=== PATIENT | female | born 1940 | race Caucasian/White ===

== ENCOUNTER 2020-01-08 04:02 | Inpatient (IN) | payer MEDICARE, BC, OTHER ==
[~2020-01-08] VITALS: Ht 147.3 cm; Wt 55.3 kg
[~2020-01-08 04:02] MED LIST: ATORVASTATIN CA40 MG PO; LEVOTHYROXINE50 MCG PO
[2020-01-08] MEDS ORDERED: METFORMIN HCL500 MG PO (09:37)
[2020-01-08] MEDS ORDERED: LEVOTHYROXINE75 MCG PO (09:37)
--- NOTE | 2020-01-08 09:57 | NUR ---
SON CARMELINA DROVE WITH PATIENT FROM [facility] TO WORK ON HIS BROTHERS HOUSE WHO LIVES IN [place], [place]. JESSICA PHONE NUMBER IS AND NIKHIL NUMBER IS [phone].
--- NOTE | 2020-01-08 10:30 | NUR ---
NOTIFED OF PTS BP FROM WHEN SHE WAS ADMITTED
--- NOTE | 2020-01-08 11:22 | NUR ---
IN PTS ROOM WITH PHOEBE RN AND MALDONADO RN TO PLACE PTS NASOGASTRIC TUBE. PT TOLERATED WELL WITH IMMEDIATE FLUID RETURN IN SUCTION CANISTER. PT HAS NO CONCERNS AT THIS TIME AND PT EDUCATION WAS PROVIDED PRIOR TO PROCEDURE BEING PERFORMED.
--- NOTE | 2020-01-08 12:10 | NUR ---
PT OFF TO SURGERY AT THIS TIME
--- NOTE | 2020-01-08 12:30 | NUR ---
RESTLESS,AGITATED, ATIVAN 4 MG IV GIVEN PER DR. CONTRERAS ORDERS. ORDERS RECIVED TO ALSO GIVE 130 MG OF PHENOBARB IV.
--- NOTE | 2020-01-08 14:55 | CONS ---
[facility] [address], [place] [address] Signed DATE OF CONSULTATION: 01/08/2020 CHIEF COMPLAINT: Generalized abdominal pain. HISTORY OF PRESENT ILLNESS: Phoenix is a 79-year-old female, who has had a previous bladder suspension. She has had 4 children, all born vaginally. They live in [place], [place]. She came up with her , Liban, and their oldest son Cedric to help their other son Kiko to work on his house up in [place], [place]. In the last 3 days, she has been having generalized abdominal pain and some back pain and had come to the emergency room. She did vomit once. Her short-term memory is very poor, so it was difficult to obtain much history from Phoenix for myself and for the ER physician. Consequently, she did have blood work done that was not in particularly concerning; however, the CT scan of abdomen and pelvis shows a closed-loop obstruction in the right lower quadrant with edema in the mesentery and some free fluid in the abdomen as well. Consequently, I have been asked to admit her as a general surgeon on-call. She has been given Rocephin and Flagyl, IV fluids and the NG tube is in the room. In the meantime, I have finished in the OR, and I have come down to visit with Phoenix. Also, we asked our Internal Medicine Service to see her, but they have been extremely busy this morning and yet to make to Phoenix at this time. We did obtain an EKG and it does show normal sinus rhythm. In the meantime, she seems to be doing fine other than her generalized abdominal pain. PAST MEDICAL HISTORY: Type 2 diabetes, hypothyroidism, hypercholesterolemia, and poor memory. PAST SURGICAL HISTORY: Includes a bladder suspension. SOCIAL HISTORY: She does not smoke or drink. She is to Liban at [phone]. Her oldest son is Cedric at [phone] and her son, Kiko lives in [place], [place] is at [phone]. Phoenix Louie and her oldest son all live in [place], [place]. Her primary care provider is Dr. Rocha. They apparently prefer [facility]. FAMILY HISTORY: Not obtainable. REVIEW OF SYSTEMS: I spoke with her oldest son, Cedric on the phone and he tells me there is no metal in her body to his knowledge and the only surgery she had is a bladder sling. Unfortunately, her literally turned blue in our ER and he had to be flown out to our [facility] at . Consequently, he was not available Electronically Signed By: NANCY BEE MD 01/08/20 2470 PATIENT NAME: PHOENIX DOMINGUEZ CONSULTATION DATE OF : 40 REPORT #: [id number] PHYSICIAN: NANCY BEE MD PCP: OTHER PCP REPORT IS CONFIDENTIAL AND NOT TO BE RELEASED WITHOUT AUTHORIZATION [facility] [address] [place] [id number] Signed for any detail. ALLERGIES: None. MEDICATIONS: Levothyroxine 50 mcg p.o. daily, atorvastatin 40 mg p.o. daily, metformin 500 mg p.o. b.i.d. PHYSICAL EXAMINATION: VITAL SIGNS: Blood pressure is 187/65, heart rate , respiratory rate 17, temperature is 98, she is 92% to 100% on room air. She is 4 feet 10 inches at 53 kg. GENERAL: Phoenix is a 79-year-old female, lying supine in her hospital bed. She is awake and does answer, but rapidly falls back asleep apparently for morphine and Dilaudid. LUNGS: Generally clear to auscultation bilaterally. HEART: Regular rate and rhythm without murmurs. ABDOMEN: Soft and flat. I can feel the closed loop of bowel in her right lower quadrant. It is mobile, but it is tender. LABORATORY DATA: Her white blood count is 4.6, hemoglobin 13, neutrophils . Her sodium is 129, glucose is 140, BUN 17, creatinine 0.74. Urinalysis is negative. Lactic acid is 1.1. Her albumin is 3.9. Liver function tests are negative. Lipase is 31. RADIOGRAPHIC STUDIES: CT scan and pelvis is reviewed along with the report. She clearly has fluid-filled loops of dilated small bowel, what appears to be a closed-loop obstruction with two transition points in the right lower quadrant. There is some edema in the mesentery and some free fluid in the abdomen. Her bladder was quite enlarged and she has already has a Espino catheter in place that has not relieved her abdominal pain. ASSESSMENT/PLAN: Phoenix is a 79-year-old female, who clearly has a very poor memory. Consequently, I did call her older son, Cedric at her request. We had a long discussion regarding her current situation. She has had this for at least 3 days and she really is in need of surgery. We are going to talk to our Internal Medicine Service and Anesthesia provider and hopefully, we can start this in an hour or so. We did review the expected intraop and postop course. There is risk including, but not limited to bleeding, infection, scarring, change in contour of the skin, damage to bowel, anastomotic leak, incisional hernias and other unforeseen comorbidities. Cedric expressed understanding and would like to proceed for surgery for his mother. In the meantime, she has received IV fluids, antibiotics and pain control. Electronically Signed By: NANCY BEE MD 01/08/20 3662 PATIENT NAME: PHOENIX DOMINGUEZ CONSULTATION DATE OF : 40 REPORT #: [id number] PHYSICIAN: NANCY BEE MD PCP: OTHER PCP REPORT IS CONFIDENTIAL AND NOT TO BE RELEASED WITHOUT AUTHORIZATION [address] [address] Signed MD GERTRUDE Lemon/STEPHANIE /[id number] cc: Dr. Aj Bee MD Copies: NANCY BEE MD ~ Electronically Signed By: NANCY BEE MD 01/08/20 1455 PATIENT NAME: PHOENIX DOMINGUEZ CONSULTATION DATE OF : 40 REPORT #: [id number] PHYSICIAN: NANCY BEE MD PCP: OTHER PCP REPORT IS CONFIDENTIAL AND NOT TO BE RELEASED WITHOUT AUTHORIZATION
--- NOTE | 2020-01-08 14:55 | NUR ---
01/08/20 1455 [place] 1449 PT ARRIVED TO PACU ON 8L VIA MASK, PT NONAROUSBALE. CGB 206. RESP EVEN AND UNLABORED WITH ORAL AIRWAY IN PLACE.
--- NOTE | 2020-01-08 15:20 | NUR ---
REPORT RECIEVED FROM HEEL SEAT FLAP STAPLER. PT IS ABLE TO ANSWERE QUESTIONS. VERY GROGGY.POE CATH PATENT. DENIES PAIN. ABD RESTING IS DRY AND INTACT.
--- NOTE | 2020-01-08 16:00 | NUR ---
ASSESSMENT DONE. ORAL CARE GIVEN. NG IRRIGATED WITH 30 ML OF WATER. RETURN OF RUST COLORED SECREATIONS. DENIES NAUSEA.
--- NOTE | 2020-01-08 17:30 | NUR ---
REPOSITIONED. TURNS EASY WITH ASSIST. MILD PAIN. ENC TO DEEP BREATH. ICE BAG TO ABD IN PLACE.
--- NOTE | 2020-01-08 19:00 | NUR ---
NO FUTHER CHANGES. RESTING. REPORT TO NEST SHIFT.
--- NOTE | 2020-01-08 20:57 | NUR ---
PT SON CARMELINA CALLED. STATES THAT THE PT'S JUST TESTED POSITIVE FOR COVID TODAY. DR BEE, DR CONTRERAS, AND WASTE WATER OPERATOR NOTED. PT TO BE SWITCHED TO A NEGATIVE PRESSURE ROOM AT THIS TIME.
--- NOTE | 2020-01-08 21:53 | NUR ---
IN ROOM FOR ASSESSMENT AND MEDICATION ADMINISTRATION. PT RESTING IN BED DENIES ABD PAIN OR DISCOMFORT, PT DOES COMPLAIN OF THROAT DISCOMFORT. PT UPDATED ON HUSBANDS STATUS COVID POSITIVE, AND PLAN TO MOVE PT TO NEGATIVE PRESSURE ROOM. IV ABX AND FLUIDS INFUSING AT THIS TIME. SECOND IV STARTED IN RIGHT FOREARM. WELL TOLERATED BY PT. URINE OUTPUT WNL. ABD INCISION DRESSING IS CLEAN DRY AND INTACT.
--- NOTE | 2020-01-08 23:20 | NUR ---
PT PAIN IN RIGHT SHOULDER AND RIB HAVE RESOLVED. PT RESTING WATCHING TELEVISION AT THIS TIME. CALL LIGHT WITHIN REACH. WILL CONTINUE TO MONITOR.
--- NOTE | 2020-01-09 00:34 | NUR ---
ASSESSMENT COMPLETED AT THIS TIME. PT NOTED TO HAVE CRACKLES IN BILATERAL LOWER BASES. PT IS COUGHING. STATES SHE HAS HAD A PRODUCTIVE COUGH "SINCE I GOT SICK". ASSISTED PATIENT WITH REPOSITIONING IN THE BED. PT DENIES PAIN AT THIS TIME. ABD DRESSING CLEAN DRY AND INTACT. ALL QUESTIONS ANSWERED. NO FURTHER NEEDS AT THIS TIME.
--- NOTE | 2020-01-09 02:34 | NUR ---
pt AWAKE WHEN RN ENTERS ROOM. DENIES PAIN. PRN LOZENGE PROVIDED REQEUSTED. IV ANTIBIOTIC INFUSING WNL ORDERED. POE DRAINING YELLOW URINE. pt DENIES PAIN AT THIS TIME. CALL LIGHT IN REACH.
--- NOTE | 2020-01-09 04:15 | NUR ---
ASSESSMENT COMPLETED AT THIS TIME. PT ALERT AND ORIENTED. DENIES ABD PAIN. BOWEL TONES ABSENT. LUNGS SOUND CLEAR IN THE BASES. FINE CRACKLES IN THE BILATERAL BASES. URINE OUT PUT HAS IMPROVED. PT REPOSITIONED. IV FLUIDS CONTINUE TO INFUSE. CALL LIGHT WITHIN REACH. NO FURTHER NEEDS AT THIS TIME.
--- NOTE | 2020-01-09 06:24 | NUR ---
IN ROOM TO DRAW BLOOD. PT COMPLAINS OF SORE THROAT, LOZENGE GIVEN AT THIS TIME. ASSISTED PT WITH REPOSITIONING IN BED. PT STILL HAS CRACKLES IN LOWER LUNG BASES. URINE OUTPUT HAS BEEN MARINAL. PT DID SOME COUGHING AND DEEP BREATHING.
--- NOTE | 2020-01-09 06:28 | NUR ---
DR BEE IN TO SEE PATIENT. UPDATED ON PTS CONDITION.
--- NOTE | 2020-01-09 06:29 | OR ---
[facility] [address], [place] [address] Signed DATE OF OPERATION: 01/08/2020 SURGEON: Nancy Bee MD PREOPERATIVE DIAGNOSIS: Closed-loop distal small bowel obstruction. POSTOPERATIVE DIAGNOSIS: Closed-loop distal small bowel obstruction. PROCEDURES: 1. Small bowel resection (terminal ileum) with stapled hbdt-wz-uvrr anastomosis (45 cm length). 2. Minimal lysis of adhesions, in was 1.2 L crystalloid and out was 50 mL of blood. FINDINGS: Phoenix had a closed-loop obstruction in her ileum involving the right lower quadrant from previous hysterectomy from just a few adhesions. The bowel was quite edematous and hemorrhagic and had to be resected. A hcmo-rh-hlfq stapled anastomosis was performed. Her appendix remains in place as well as her gallbladder. INDICATIONS: Phoenix is a 79-year-old female, who came out from [place], [place] with her and her oldest son to me to [place]. Her son happens to live in [place] and needed some help on his house. For the last 3 days, she has been having generalized abdominal pain and back pain. She was brought to the emergency room for evaluation. She did vomit once. She seemed to have mild generalized abdominal tenderness with a normal white count and normal lactic acid level. A CT scan of abdomen and pelvis was performed and one can see the closed-loop obstruction of the small bowel in the right lower quadrant. There was no pneumatosis, but there was certainly edema in the mesentery and some free fluid in the abdomen and pelvis. Consequently, I have been asked to admit her as a general surgeon on-call. In the meantime, she did receive her antibiotics, IV fluids, and pain control. Her urinary bladder was quite distended and apparently she has had trouble with that in the past in reviewing some of her records from [place]. A Espino catheter had been inserted in the emergency room with return of clear yellow urine. I had met with Phoenix and I could feel the closed loop of bowel in her right lower quadrant. This was the area of maximum tenderness. Her memory is not the best and unfortunately her actually had turned blue in our emergency room and had to be life flighted over to [facility]. Consequently, she had me called her older son on the phone. We spoke at length regarding the above findings. I Electronically Signed By: NANCY BEE MD 01/09/20 0629 PATIENT NAME: PHOENIX DOMINGUEZ OPERATIVE REPORT DATE OF : 40 REPORT #: [id number] PHYSICIAN: NANCY BEE MD PCP: OTHER PCP REPORT IS CONFIDENTIAL AND NOT TO BE RELEASED WITHOUT AUTHORIZATION [facility] [address], [place] [address] Signed explained to the son that Phoenix really need to go to surgery in a semi-urgent fashion to deal with this area of small bowel. Given the CT scan findings and the 3 days of symptoms, it was highly likely it would have to be resected. We reviewed the risk to that surgery including, but not limited to bleeding, infection, scarring, change in contour of the skin, anastomotic leak, incisional hernias, and other unforeseen comorbidities. We also reviewed the expected intraop and postop course. He and Phoenix had expressed understanding and wished to proceed. In her notes from [place], Phoenix is a full code and we kept her full code and I did talk to her son in that regard. He was going to double-check with his father and if that needs to change, we can certainly change that. PROCEDURE NOTE: After talking with our anesthesia provider, Phoenix was taken in the operating room and placed in the supine position under general endotracheal tube anesthesia. She was already on her preoperative antibiotics and subcutaneous Lovenox. SCDs were in place. A Espino catheter was already in place. We had already placed her NG tube down on the medical floor. She was prepped and draped in the usual sterile fashion. A standard periumbilical incision was made and carried in the abdomen with the help of the cautery. We immediately encountered hemorrhagic ascitic fluid, that was suctioned out. We could easily see unremarkable proximal small bowel, but then we could see the closed-loop obstruction in the right lower quadrant with dilated hemorrhagic congested small bowel. There was just a few adhesions from her fallopian tube and her ovary were easily divided and that released her closed-loop obstruction. She still has 20 cm of normal in between the ileocecal valve and this closed-loop obstruction. Unfortunately, we felt the bowel was too far gone to salvage and we therefore resected it between Pean clamps and 0 Vicryl ties from the mesentery. The distal and proximal small bowel had been divided with the linear stapler. About 45 cm of the ileum had to be resected. It was appropriately marked with silk suture and passed off the field. We did take a couple of pictures for photodocumentation. We ran the small bowel again from the cecum all the way back to the ligament of Treitz and the rest of the small bowel was uninvolved and adhesions were quite healthy. Her appendix is in the retrocecal position, although she has a very mobile cecum. We left that in place. We looked at her liver and her gallbladder and they appeared quite healthy to us. After this, we performed a standard ocqi-vg-hasa stapled anastomosis. The bowel had been held in place with interrupted silk sutures and 75 mm stapler was used for the anastomosis. We then imbricated the anterior staple line with additional silk sutures. The mesenteric rent was closed with a running 0 Vicryl suture. We then irrigated the abdomen with 2 L warm antibiotic saline solution and suctioned that out until clear. Her uterus indeed has been removed. She has an unbelievably large floppy bladder even with the Espino catheter in place. We could see the right fallopian tube and atrophic ovary. We did not inspect for the left side. After this, the small bowel was returned. The abdomen and the omentum were placed over the small bowel. We closed the midline fascia with interrupted # 1 Electronically Signed By: NANCY BEE MD 01/09/20 0629 PATIENT NAME: PHOENIX DOMINGUEZ OPERATIVE REPORT DATE OF : 40 REPORT #: [id number] PHYSICIAN: NANCY BEE MD PCP: OTHER PCP REPORT IS CONFIDENTIAL AND NOT TO BE RELEASED WITHOUT AUTHORIZATION [facility] [address] [place] [address] Signed [id number] PDS sutures. A tap block had been placed by our anesthesia provider before the surgery. We added additional local anesthetic in the abdominal wall and subcutaneous tissues below the level of the umbilicus. The wound had been irrigated and suctioned out until clear. The dermis was reapproximated with interrupted 3-0 subcuticular Monocryl sutures. The skin was reapproximated with fox. Dry gauze and tape were then applied. Phoenix was awakened from anesthesia, extubated in the OR, and taken to recovery room in stable condition. Nancy Bee MD ALB/MODL /[id number] cc: MD Tonny Lemon MD [place], [place] MD [place], [place] Copies: NANCY BEE MD ~ Electronically Signed By: NANCY BEE MD 01/09/20 0629 PATIENT NAME: PHOENIX DOMINGUEZ OPERATIVE REPORT DATE OF : 40 REPORT #: [id number] PHYSICIAN: NANCY BEE MD PCP: OTHER PCP REPORT IS CONFIDENTIAL AND NOT TO BE RELEASED WITHOUT AUTHORIZATION
--- NOTE | 2020-01-09 07:30 | NUR ---
PATIENT SHIFT REPORT RECIEVED FROM REFRIGERATOR REPAIRMAN RN. PATIENT RESTING IN BED. CALL LIGHT IN REACH. WILL CONTINUE TO CLOSELY MONITOR.
--- NOTE | 2020-01-09 08:30 | NUR ---
PATIENT ASSESSMENT COMPLETED. PATIENT BREATH SOUNDS CLEAR AND PATIENT IS ON ROOM AIR. PATIENT HAS AN OCCASIONAL COUGH THIS AM. SPO2 96% ON RA. PATIENT COMPLEAINS OF A SORE THROAT. NG TUBE STILL IN PLACE. BOWEL TONES ABSENT. PATIENT REQUESTING SOMETHING TO DINK EDUCATED THAT STAFF CAN NOT GET HER ANYTHING BECAUSE SHE IS NPO. WILL GIVE PATIENT A MOUTH SWAB WITH WATER. PATIENT MID ABD INCISION IS C/I WITH VICKIE PRESENT AND OPEN TO AIR PER MD. PATIENT HAS SOME TENDERNESS TO SITE. WILL CONTINUE TO CLOSELY MONITOR.
--- NOTE | 2020-01-09 10:30 | NUR ---
PATIENT RESTING IN BED WITH HER EYES CLOSED AT THIS TIME. RR EVEN AND UNLABORED. VITALS STABLE. WILL CONTINUE TO CLOSELY MONITOR.
--- NOTE | 2020-01-09 12:41 | NUR ---
UNABLE TO VISIT PT AT THIS TIME DUE TO PRECAUTIONS. WILL MAKE MYSELF AVAILABLE
--- NOTE | 2020-01-09 12:54 | NUR ---
IN ROOM TO ASSESS PATIENT. PATIENTS ASSESSMENT REMAINS UNCHANGED FROM PRIOR ASSESSMENT THIS AM. PATIENT RESTING IN BED AT THIS TIME. REMOVED NG TUBE AND UPDATED ON NEW PROTOCOL TO HAVE PATIENTS WEAR THEIR MASK WHEN STAFF ARE IN THE ROOM. PATIENT IS AGREEABLE TO THIS PLAN. PATIENT WEARING MASK AND VISITING WITH STAFF ABOUT HER KIDS AND HER RECENT PLANS PRIOR TO BEING ADMITTED. PATIENT HAS MINIMAL ABD PAIN AT THIS TIME. WILL CONTINUE TO CLOSELY MONITOR.
--- NOTE | 2020-01-09 15:00 | NUR ---
PATIENT RESTING IN BED. REPOSITIONED FOR COMFORT. PATIENT VERY CHATTY WITH STAFF THIS AFTERNOON. PATIENT DENEIS ANY OTHER NEEDS AT THIS TIME. PATIENTS ASSESSMENT REMAINS UNCHANGED. WILL CONTINUE TO CLOSELY MONITOR.
--- NOTE | 2020-01-09 16:35 | EKG ---
[facility] [address] [facility] [place], [place] [address] Signed Normal sinus rhythm Normal ECG No previous ECGs available Confirmed by MAY CONTRERAS DO ([id number]) on 01/09/2020 4:35:15 PM Electronically Signed By: MAY CONTRERAS DO 01/09/20 1635 PATIENT NAME: PHOENIX DOMINGUEZ Electrocardiogram DATE OF : 40 PHYSICIAN: MAY CONTRERAS DO REPORT #: [id number] REPORT IS CONFIDENTIAL AND NOT TO BE RELEASED WITHOUT AUTHORIZATION
--- NOTE | 2020-01-09 17:15 | NUR ---
PATIENT RESTING IN BED SLEEPING. PATIENTS SPO2 89 ON RA. RT IN TO ASSESS AND TEACH PATIENT HOW TO USE THE INCENTIVE SPIROMETER AND AQAPELLA. SPO2 IMPROVED ON RA WITH NEW TEACHINGS. WILL CONTINUE TO CLOSELY MONITOR.
--- NOTE | 2020-01-09 18:10 | NUR ---
Medications reconciled
--- NOTE | 2020-01-09 18:37 | NUR ---
PATIENT RESTING IN BED. PATIENT CALLED TO HAVE HER BLAKET TAKEN OFF. PATIENTS BLOOD SUGAR DONE AND NOTED TO BE 83. PATIENT STATES SHE RUNS 80-120 ON HER GLUCOSE. PATIENT REPOSITIONED IN BED. NO OTHER NEEDS AT THSI TIME. CALL LIGHT IN REACH. WILL CONTINUE TO CLOSELY MONITOR.
--- NOTE | 2020-01-09 18:45 | NUR ---
CALLED MD BEE. UPDATED ABOUT PATIENTS BLOOD SUGAR OF 83. PER MD CAN GIVE PATIENT SIPS OF FLUID WITH A 100ML FLUID RESTRICTION IN A DAY. IF HER BLOOD SUGARS DONT IMPROVE WE CAN DO D5LR. PER MD WE CAN MAKE PATIENT A MEDICAL PATIENT AT THIS TIME. WILL CONTINUE TO CLOSELY MONITOR.
--- NOTE | 2020-01-09 20:15 | NUR ---
SHIFT REPORT RECEIVED FROM JHOAN OLIVARES. ASSESSMENT COMPLETED AT THIS TIME. PT IS ALERT/ORIENTED, DENIES PAIN. LUNGS CLEAR, RA, DENIES SOB. HR REGULAR, DENIES CHEST PAIN. BOWEL TONES ABSENT EXCEPT IN RLQ=HYPOACTIVE, PT DENIES PASSING FLATUS. IV SITES INTACT AND PATENT. MIDLINE ABDOMINAL INCISION IS WELL APPROXIMATED, VICKIE INTACT, OPEN TO AIR WITH NO DRAINAGE PRESENT. POE PATENT, DRAINING FREELY, POE CATH CARE COMPLETED. CB, NO SLIDING SCALE COVERAGE REQUIRED. PT PROVIDED WITH APPLE JUICE AND MADE AWARE OF FLUID RESTRICTION. SCD'S IN PLACE. PT DENIES FURTHER REQUESTS AT THIS TIME, CALL LIGHT WITHIN REACH.
--- NOTE | 2020-01-09 22:29 | NUR ---
PT OCCASIONALLY DESATURATES TO MID 80s%, 2L O2 VIA NC PLACED ON PT. PT STATES SHE IS DOING WELL AND ONLY HAS PAIN WHEN SHE COUGHS. INSTRUCTED PT TO SPLINT ABDOMEN WHILE COUGHING, PT DEMONSTRATED LEARNING. NO FURTHER REQUESTS AT THIS TIME.
--- NOTE | 2020-01-09 23:30 | NUR ---
PT CALLED TO REQUEST ASSISTANCE REPOSITIONING HER BED. ASSESSMENT COMPLETED. PT REMAINS ALERT/ORIENTED, DENIES PAIN. LUNGS REMAIN CLEAR, 2L O2 VIA NC IN PLACE, DENIES SOB. HR REGULAR, DENIES CHEST PAIN. BOWEL TONES ARE NOW HYPOACTIVE IN ALL 4 QUADRANTS, PT TOLERATING SIPS OF CLEAR LIQUIDS WELL. IV SITES REMAIN INTACT AND WNL. SCD'S IN PLACE. POE CONTINUES TO DRAIN FREELY. NO FURTHER REQUESTS AT THIS TIME, CALL LIGHT WITHIN REACH AND PT EDUCATED ON HOW TO USE BED CONTROLS TO REPOSITION BED.
--- NOTE | 2020-01-10 02:15 | NUR ---
PT CALLED TO ASK FOR ASSISTANCE REPOSITIONING IN THE BED. ASSISTED HER TO HER RIGHT SIDE WITH PILLOW SUPPORT. ABX INFUSION STARTED. NO FURTHER REQUESTS AT THIS TIME.
--- NOTE | 2020-01-10 02:56 | NUR ---
PT CALLED TO REPORT 7/10 ABDOMINAL PAIN, PRN TORADOL GIVEN AT THIS TIME. DENIES NAUSEA.
--- NOTE | 2020-01-10 03:45 | NUR ---
PT APPEARS TO BE SLEEPING SOUNDLY AT THIS TIME.
--- NOTE | 2020-01-10 05:18 | NUR ---
PT CONTINUES TO SLEEP SOUNDLY, NO APPARENT DISTRESS. RESPIRATIONS EVEN AND UNLABORED, RR:16, HR:59, SPO2:100% ON 2L O2 VIA NC. WILL ALLOW FOR REST AND CONTINUE TO MONITOR.
--- NOTE | 2020-01-10 07:24 | NUR ---
FRESH ICE WATER PROVIDED AND NEW BAG OF IV FLUIDS HUNG.
--- NOTE | 2020-01-10 07:30 | NUR ---
PATIENT SHIFT REPORT RECIEVED FROM GRAPE CRUSHER RN. PATIENT RESTING IN BED AT THIS TIME. CALL LIGHT IN REACH. WILL CONTINUE TO CLOSELY MONITOR.
--- NOTE | 2020-01-10 10:00 | NUR ---
THIS RN IN THE ROOM SINCE 829 TO DO A COMPLETE BED BATH. CHANGED ALL BEDDING, GOWN, AND POE CATH CARE PROVIDED. ASSISTED PATIENT UP TO THE CHAIR WITH 2 PERSON ASSIST FOR PATIENTS SAFETY. PATIENT TOLERATED WELL. PATIENTS ASSESSMENT C/D/I. VICKIE PRESENT. THIS RN IN PAPR SO CAN NOT LISTEN TO PATIENT AT THIS TIME. PATIENT DENEIS PAIN. PATIENT RESTING IN THE CHAIR NOW AND TOELRATING WELL. CALL LIGHT IN HAND. WILL CONTINUE TO CLOSELY MONITOR.
--- NOTE | 2020-01-10 12:11 | NUR ---
THIS RN IN TO SEE PATIENT. PATIENT RESTING WELL IN THE CHAIR AT THIS TIME. PATIENT IS WORKING ON HER AQAPELLA IN THE ROOM ON HER OWN. PATIENT DOES HAVE A PRODUCTIVE LOOSE COUGH. PATIENT CELLPHONE AT THE BEDSIDE. PATIENT STATES HER SON WILL BE BRINGING HER INDUSTRIAL WORKERS. PATIENT DENIES ANY OTHER NEEDS AT THIS TIME. WILL CONTINUE TO CLOSELY MONITOR.
--- NOTE | 2020-01-10 13:30 | NUR ---
PATIENT UP TO THE CAMMODE AND HAD A SMALL LOOSE BM. RUSTISH/BROWN IN COLOR HEME TESTED POSITIVE. PATIENT DENIES ANY OTHER NEEDS AT THIS TIME, PATIENT RESTING BACK IN THE CHAIR AND IS COMFORTBLE AT THIS TIME. CALL LIGHT ON LAP. WILL CONTINUE TO CLOSELY MONITOR.
--- NOTE | 2020-01-10 15:48 | NUR ---
PATIENT UP TO THE CAMMODE. PATIENT HAD A SMALL KAVITA COLORED STOOL. PATIENT DENIES ANY OTHER NEEDS AND RESTING BACK IN THE CHAIR. VITALS DONE. POE EMPTIED. WILL CONTINUE TO CLOSELY MONTIOR.
--- NOTE | 2020-01-10 16:18 | PATH ---
[facility] [address], [place] [address] Signed SPECIMEN(S): A ILEUM SPECIMEN SOURCE: A. ILEUM CLINICAL HISTORY: Pre: Small bowel obstruction. Post: Lysis of adhesions, small bowel resection. Silk stitch francis proximal margin of specimen. FINAL PATHOLOGIC DIAGNOSIS: Ileum, segmental resection: - Benign small bowel with central mucosal necrosis and bowel well vascular congestion. - Benign histologically viable tissue present at the surgical margins. - Several incidental lymph nodes with benign reactive histologic features. JVR:[id number]:[id number] MICROSCOPIC EXAMINATION: Histologic sections of all submitted blocks are examined by light microscopy. These findings, together with the gross examination, support the pathologic diagnosis. GROSS DESCRIPTION: The specimen, labeled "HH," and designated on the requisition "ileum," is received in formalin and consists of a previously opened segment of small bowel (49.0 cm in length and ranging in circumference from 4.5 to 5.6 cm) with portion of attached mesentery (extending 8.3 cm out). The serosa is black-brown and dusky with a segment of pink-shore grossly viable bowel (5.3 cm in length) at one end. Mucosa is pink-shore and the area corresponding to the grossly viable bowel and the remaining mucosa is red-black and devitalized. No lesions or masses are identified. Erco Machine Operator sections are submitted as follows: Cassette Summary: (A1) Margins, en face (A2) Bowel wall (A3) Five possible lymph nodes, intact AC (under the direct supervision of a pathologist) The Gross Description was prepared using a voice recognition system. The report was reviewed for accuracy; however, sound-alike word errors, addition and/or deletions may occur. If there is any PATIENT NAME: PHOENIX DOMINGUEZ PATHOLOGY DATE OF : 40 REPORT #: [id number] PHYSICIAN: EULOGIO BRISCOE PCP: OTHER PCP REPORT IS CONFIDENTIAL AND NOT TO BE RELEASED WITHOUT AUTHORIZATION [facility] [address], [place] [address] Signed question about this report, please contact Client Services. PERFORMING LABORATORY: The technical component was performed by [facility], [address] [place] [address] (Sample Cutter: Elsi Xiong MD; CLIA# [id number]). Professional [place] [address] (Sample Cutter: bIan Kovacs M.D.). Diagnostician: Iban Kovacs MD Pathologist Electronically Signed 01/10/2020 Copies: ~ PATIENT NAME: PHOENIX DOMINGUEZ PATHOLOGY DATE OF : 40 REPORT #: [id number] PHYSICIAN: EULOGIO PATHOLOGY PCP: OTHER PCP REPORT IS CONFIDENTIAL AND NOT TO BE RELEASED WITHOUT AUTHORIZATION
--- NOTE | 2020-01-10 18:45 | NUR ---
WARM BLANKET PROVIDED FOR PATIENTS FEET. JELLO AND BROTH AT THE BEDSIDE. PATIENT DENEIS ANY OTHER NEEDS WHILE STAFF AT THE BEDSIDE. WILL CONTINUE TO CLOSELY MONITOR.
--- NOTE | 2020-01-10 20:51 | NUR ---
SHIFT REPORT RECEIVED FROM JHOAN OLIVARES. ASSESSMENT COMPLETED. PT IS ALERT/ORIENTED, REPORTS 5/10 UPPER BACK/RIGHT SHOULDER PAIN, PRN TORADOL GIVEN AND PT MOVED FROM CHAIR BACK TO BED. LUNGS CLEAR, ROOM AIR, DENIES SOB. HR REGULAR, DENIES CHEST PAIN. BOWEL TONES HYPOACTIVE, PT REPORTS HAVING BM'S TODAY, DENIES TENDERNESS UPON PALPATION. MIDLINE INCISION IS WELL-APPROXIMATED, VICKIE INTACT, NO DRAINAGE NOTED. OTHERWISE SKIN IS GROSSLY INTACT, NO EDEMA NOTED. POE PATENT, CATHETER CARE PROVIDED, URINE LOOKING MORE DILUTE. SCD'S PLACED ON PT. FRESH ICE WATER PROVIDED. IV TO RIGHT FOREARM D/C'D DUE TO LEAKING/PAIN WITH FLUSH, CATHETER TIP INTACT, PT TOLERATED WELL. LEFT AC IV IS PATENT AND INTACT, FLUIDS INFUSING WNL. NO FURHTER REQUESTS AT THIS TIME, CALL LIGHT AND BELONGINGS WITHIN REACH.
--- NOTE | 2020-01-10 21:04 | NUR ---
PT USING ACAPELLA INDEPENDENLY.
--- NOTE | 2020-01-10 22:03 | NUR ---
PT CALLED FOR ASSISTANCE TO REPOSITION IN THE BED. ASSISTED HER TO SCOOT UP HIGHER IN THE BED AND REPOSITION HER PILLOWS. NO FURTHER REQUESTS, CALL LIGHT WITHIN REACH.
--- NOTE | 2020-01-10 23:06 | NUR ---
PT CALLED TO REPORT 5/10 RIGHT SHOULDER AND RIB PAIN, 1MG IV DILAUDID GIVEN. ASSESSMENT COMPLETED. PT DESATS WHILE SLEEPING ~84%, 2L O2 VIA NC PLACED ON PT. BOWEL TONES ARE NOW NORMOACTIVE. OTHERWISE ASSESSMENT UNCHANGED. VITAL SIGNS STABLE. PT REPOSITIONED HERSELF IN BED. FRESH ICE WATER PROVIDED. CALL LIGHT WITHIN REACH.
--- NOTE | 2020-01-11 01:59 | NUR ---
PT SLEEPING SOUNDLY AT THIS TIME, NO APPARENT DISTRESS. RESPIRATIONS EVEN AND UNLABORED, RR:17, SPO2:99% ON 2L, HR: 59. WILL ALLOW FOR REST AND CONTINUE TO MONITOR.
--- NOTE | 2020-01-11 04:15 | NUR ---
ASSESSMENT COMPLETED. PT DENIES PAIN, CHEST PAIN, SOB, AND NAUSEA. NO OTHER CHANGES FROM PREVIOUS ASSESSMENT. PT DENIES NEEDS AT THIS TIME, CALL LIGHT WITHIN REACH.
--- NOTE | 2020-01-11 07:15 | NUR ---
Report received, orders acknowledged. Patient sleeping in bed, respirations even and unlabored. SpO2 of 99% on RA. Call light within reach.
--- NOTE | 2020-01-11 08:30 | NUR ---
Patient laying in bed watching tv. Vitals taken, assessment complete. Crackles noted in bases of lungs, patient encouraged to cough and breathe deep. Productive cough noted with thick yellow sputum. Patient up to chair with 1PA, stand and pivot. Patient unsteady on feet. Fluids infusing at 100 mls/hr. Patient denies further needs, call light within reach.
--- NOTE | 2020-01-11 10:00 | NUR ---
Dr. Wills in room to assess patient and discuss POC. Verbal orders acknowledged to D/C white and monitor urine output. Patient denies pain and nausea. Patient sitting up in chair watching tv. Fluids infusing at 100 mls/hr. Denies needs at this time, call light within reach.
--- NOTE | 2020-01-11 11:05 | NUR ---
Patient back to bed with 1PA, stand and pivot. Unsteady on feet. Patient reports pain of 7/10 in lower back, prn pain medication given (see MAR). Rolled up blanket placed on patient's lower back per request. Espino D/C'd. LR infusing at 50 mls/hr. Patient laying in bed watching tv, water refreshed. Warm blankets provided. Denies further needs at this time. Call light within reach.
--- NOTE | 2020-01-11 11:41 | NUR ---
BECAUSE OF PRECAUTIONS, UNABLE TO VISIT PT AT THIS TIME. WILL FOLLOW
--- NOTE | 2020-01-11 12:03 | NUR ---
Patient sleeping in bed, respirations even and unlabored. Sp02 of 97% on RA. Call light within reach.
--- NOTE | 2020-01-11 14:01 | NUR ---
PT in room working with patient
--- NOTE | 2020-01-11 15:36 | NUR ---
Patient sleeping in bed, respirations even and unlabored. SpO2 of 99% on RA, HR in the 60's. Call light within reach.
--- NOTE | 2020-01-11 16:30 | NUR ---
Patient up to BSC with 1PA, voided and BM produced. Returned to bed, repositioned for comfort. Vitals taken, assessment complete. Crackles auscultated in bases of lungs. IS at bedside. Patient denies needs at this time, call light within reach.
--- NOTE | 2020-01-11 21:00 | NUR ---
SHIFT REPORT RECEIVED FROM JHOAN MONTEZ. ASSESSMENT COMPLETED AT THIS TIME, LIMITED DUE TO PAPR PPE. PT IS ALERT/ORIENTED, REPORTS MINIMAL 3/10 ABDOMINAL PAIN WITH MOVEMENT, PRN TORADOL GIVEN. PT IS ON ROOM AIR, DENIES SOB. HR REGULAR PER MONITOR, DENIES CHEST PAIN. DENIES NAUSEA, HAS HAD MULTIPLE BM'S TODAY. MIDLINE INCISION REMAINS WELL APPROXIMANTED, VICKIE INTACT, NO DRAINAGE NOTED. OTHERWISE SKIN IS INTACT. SCD'S PLACED ON PT. IV INTACT AND PATENT, FLUIDS INFUSING WNL. PT UP TO BSC WITH SBA TO VOID AND RETURNED TO BED, TOLERATED WELL. FRESH ICE WATER AND WARM BLANKETS PROVIDED, PT DENIES FURTHER REQUESTS, CALL LIGHT WITHIN REACH.
--- NOTE | 2020-01-11 21:22 | NUR ---
Marisela has called multiple times since shift change. 1944 warm blankets and readjust pillows, 2029 requested water, 2039 pt called to use restroom, informed RN that pt needed to use restroom, RN helped pt with bathroom needs while she did her nightly assessment.
--- NOTE | 2020-01-11 23:00 | NUR ---
PT UP TO BSC WITH ASSISTANCE FROM STREETCAR DISPATCHER.
--- NOTE | 2020-01-11 23:03 | NUR ---
PT ASLEEP AT THIS TIME, NO APPARENT DISTRESS. RESPIRATIONS EVEN AND UNLABORED, HR: 70, SPO2: 97% ON RA. WILL ALLOW FOR REST AND CONTINUE TO MONITOR.
--- NOTE | 2020-01-12 00:36 | NUR ---
ASSESSMENT COMPLETED. PT CURRENTLY DENIES PAIN, SOB, AND NAUSEA. REMAINS ON ROOM AIR. MIDLINE INCISION UNCHANGED AND WNL. NO OTHER CHANGES FROM PREVIOUS ASSESSMENT. FRESH ICE WATER PROVIDED PER REQUEST. CALL LIGHT REMAINS WITHIN REACH.
--- NOTE | 2020-01-12 02:09 | NUR ---
PT APPEARS TO BE SLEEPING AT THIS TIME, NO APPARENT DISTRESS. RESPIRATIONS EVEN AND UNLABORED. WILL ALLOW FOR REST AND CONTINUE TO MONITOR.
--- NOTE | 2020-01-12 02:52 | NUR ---
PT CALLED TO USE BATHROOM, UP WITH SBA TO BSC. PT WAS INCONTINENT OF URINE AND ALSO VOIDED 250ML. NEW ATTENDS, CHUXS, AND CASSI-CARE PROVIDED. PT BACK TO BED WITHOUT ISSUES. NO FURTHER REQUESTS AT THIS TIME, CALL LIGHT WITHIN REACH.
--- NOTE | 2020-01-12 04:50 | NUR ---
PT CALLED TO USE BATHROOM, UP TO BSC WITH SBA TO VOID AND THEN RETURNED TO BED. ASSESSMENT UNCHANGED. NO FURTHER REQUESTS AT THIS TIME.
--- NOTE | 2020-01-12 06:07 | NUR ---
PT SLEEPING SOUNDLY, NO APPARENT DISTRESS. RESPIRATIONS EVEN AND UNLABORED, WILL ALLOW FOR REST AND CONTINUE TO MONITOR.
--- NOTE | 2020-01-12 07:30 | NUR ---
RECEIVED REPORT FROM INSTALLER. ARLEN COLLINS IN ROOM WITH pt ASSISTING TO BSC.
--- NOTE | 2020-01-12 08:00 | NUR ---
pt UP TO BSC. DISCUSSED AMBULATING INDEPENDENTLY TO BSC. SCDS OFF IV SL FOR SAFETY. ASSESSMENT DONE, DID NOT AUSCULATE DUE TO PAPR. DENIES PAIN AND SOB AT THIS TIME. pt SETTLED IN BED. BREAKFAST ORDERED. NO FURTHER REQUESTS AT THIS TIME. CALL LIGHT WITHIN REACH.
--- NOTE | 2020-01-12 10:21 | NUR ---
CALL LIGHT ON. pt REQUESTED HER TRAY BE MOVED. IN TO ASSIST IN PAPR. pt UP TO VOID SBA. TRAY MOVED. BSC EMPTIED. pt SETTLED IN BED. ANSWERED QUESTIONS ABOUT DISCHARGE. CALL LIGHT WITHIN REACH.
[2020-01-12] MEDS ORDERED: CALCIUM CARBON500 MG PO (11:25)
[2020-01-12] MEDS ORDERED: NORCO 5-325 TA1 EACH PO (11:25)
[2020-01-12] MEDS ORDERED: MAGOX 400400 MG PO (11:26)
[2020-01-12] MEDS ORDERED: K-PHOS NEUTRAL250 MG PO (11:27)
--- NOTE | 2020-01-12 12:24 | NUR ---
MEDICATIONS GIVEN (SEE MAR). EVERY OTHER STAPLE REMOVED PER ORDERS, 15 VICKIE REMAINING. 12 REMOVED. WOUND CARE INSTRUCTIONS GIVEN, pt TAUGHT BACK SIGNS OF INFECTION. pt DRESSED EATING LUNCH IN THE CHAIR. CALL LIGHT WITHIN REACH.
--- NOTE | 2020-01-12 13:38 | NUR ---
pt WHEELED FROM UNIT BY THIS RN. MET BY SON, LULA, ALL QUESTIONS ANSWERED. pt AND SON VERBALIZED UNDERSTANDING OF DISCHARGE INSTRUCTIONS. MEDICATIONS AND PERSCRIPTION IN HAND.
--- NOTE | 2020-01-13 08:48 | DS ---
[facility] [address] [place], [place] [address] Signed ADMISSION DATE: 01/08/2020 DISCHARGE DATE: 01/12/2020 FINAL DIAGNOSIS: Closed-loop small bowel obstruction (terminal ileum). PROCEDURE: Laparotomy with lysis of adhesions and small-bowel resection (18-20 inches). HISTORY OF PRESENT ILLNESS: Phoenix is a 79-year-old female generally pretty healthy who came up from [place], [place] to visit her son, Kiko. Kiko happens to live in [place], [place]. His phone number is [phone]. She came with her , Liban and her son, Cedric at [phone]. She had three days of generalized abdominal pain, had vomited once. They brought her to [facility] here in [place], [place]. Her white count was actually a bit low and indeed she tested positive for the COVID virus. The CT scan showed the closed-loop obstruction in the right lower quadrant of the abdomen. I have been asked to admit her as a general surgeon on-call. In the meantime, her was cyanotic in our emergency room and he was shifted to [facility] in [place], [place] for cardiac evaluation. He also tested positive for COVID. He remains in the hospital at [facility] currently. HOSPITAL COURSE: Phoenix was admitted as above and started on IV fluids and Rocephin and Flagyl. I simply canceled my afternoon office and we took her directly to the operating room for laparotomy and small bowel resection. She had a closed-loop obstruction in her terminal ileum. It was about 18-20 cm in length. We took pictures for photodocumentation. We performed a standard opfa-vt-xrxk stapled anastomosis with our 75 mm DANIELLE stapler. She has done very well both intraop and postop. She has probably 20 cm of terminal ileum before the ileocecal valve where the anastomosis would be obvious on x-rays. We had her here in the hospital and she has done quite well. We kept her in isolation and she has had a bit of moist productive cough, but otherwise has done quite well. She is all the way through a full liquid diet and having multiple bowel movements and no abdominal pain, no abdominal distention, no abdominal tympany. Her incision is healing very nicely. There are no local signs or symptoms of infection. Her blood sugars have been excellent. We had to replace potassium, phosphorus, calcium, and magnesium. In the meantime, we did receive records up from [place], [place] and we have reviewed those in great detail. Our Internal Medicine Service signed off after the 1st day. At this point, she has reached discharge status. Electronically Signed By: NANCY BEE MD 01/13/20 0848 PATIENT NAME: PHOENIX DOMINGUEZ DISCHARGE SUMMARY DATE OF : 40 REPORT #: [id number] PHYSICIAN: NANCY BEE MD PCP: OTHER PCP REPORT IS CONFIDENTIAL AND NOT TO BE RELEASED WITHOUT AUTHORIZATION [facility] [address] [place] [id number] Signed DISCHARGE PLANS AND MEDICATIONS: Phoenix is going to be discharged to [place], [place] with her son and [id number] and their grandchildren. Of course, they have all been exposed to Phoenix and her who are both positive for COVID. They all have to be in isolation for a couple of weeks. Apparently that is not an issue as her son works for the school district and is on summer break. In the meantime, Phoenix will continue her regular diet at home. She will continue all her chronic medications. We went ahead and wrote for Gleason 5/325 one tablet p.o. q.6 hours p.r.n. for severe postoperative pain. We will dispense 15 tablets and no refills. However, she has been using Toradol here in the hospital. In that regard, she is welcome to use nsxq-coe-thptcty Tylenol, ibuprofen or Aleve as needed for ciwq-po-lxdnifhv postoperative pain. In addition, we did dispense calcium carbonate 1000 mg one tablet p.o. b.i.d. with meals. We will dispense #30 tablets with no refills. Also, magnesium oxide 400 mg one tablet p.o. b.i.d. We will dispense 30 tablets with no refills and potassium phosphate tablets 500 mg one tablet p.o. t.i.d. with meals again, dispense 40 tablets with no refills. She will continue her activities of daily living at home including walking up and down stairs and showering and bathing as usual. We will remove 1/2 of her fox but no Steri-Strips. The other fox will be removed in my office in 5-7 days in followup. I have reviewed all this with Phoenix in detail as well as her son, Norbert over the telephone. They have expressed understanding and agreed with the above plan. Nancy Bee MD ALB/MODL /[id number] cc: Tonny Rocha M.D. in [place], [place] Michelle Ponce MD in [place], [place] Nancy Bee MD Copies: NANCY BEE MD Electronically Signed By: NANCY BEE MD 01/13/20 0848 PATIENT NAME: PHOENIX DOMINGUEZ DISCHARGE SUMMARY DATE OF : 40 REPORT #: [id number] PHYSICIAN: NANCY BEE MD PCP: OTHER PCP REPORT IS CONFIDENTIAL AND NOT TO BE RELEASED WITHOUT AUTHORIZATION [address] [place], [place] [address] Signed ~ Electronically Signed By: NANCY BEE MD 01/13/20 0848 PATIENT NAME: PHOENIX DOMINGUEZ DISCHARGE SUMMARY DATE OF : 40 REPORT #: [id number] PHYSICIAN: NANCY BEE MD PCP: OTHER PCP REPORT IS CONFIDENTIAL AND NOT TO BE RELEASED WITHOUT AUTHORIZATION
== END 2020-01-12 13:35 | disposition home or self-care (01) | DRG 329 ==
LOC: ED 04:02 → MS 04:05 → ED 09:07 → MS 09:07 → CCU 11:30 → MS 11:31 → CCU 15:30
PROVIDERS: ADMIT Colon & Rectal Surgery
PROC: 8E0ZXY6 Isolation (ICD-10-PCS; 2020-01-08)
PROC: 3E0T3BZ Introduction of Anesthetic Agent into Peripheral Nerves and Plexi, Percutaneous Approach (ICD-10-PCS; 2020-01-08)
PROC: 0DTB0ZZ Resection of Ileum, Open Approach (ICD-10-PCS; principal; 2020-01-08 12:00)
DX: K56.50 Intestinal adhesions [bands], unspecified as to partial versus complete obstruction (principal); U07.1 COVID-19; G89.18 Other acute postprocedural pain; I25.10 Atherosclerotic heart disease of native coronary artery without angina pectoris; E87.6 Hypokalemia; E83.39 Other disorders of phosphorus metabolism; E83.51 Hypocalcemia; E83.42 Hypomagnesemia; E03.9 Hypothyroidism, unspecified; E11.9 Type 2 diabetes mellitus without complications; E78.00 Pure hypercholesterolemia, unspecified; I65.29 Occlusion and stenosis of unspecified carotid artery; Z88.8 Allergy status to other drugs, medicaments and biological substances; Z79.899 Other long term (current) drug therapy; Z79.84 Long term (current) use of oral hypoglycemic drugs
CPT/HCPCS: 00790; 51702; 64448; 71045; 74177; 76942; 80048; 80053; 81001; 83605; 83690; 83735; 84100; 84134; 85025; 88307; 93005; 93010; 94667; 94668; 97162; 99285-25; C9113; C9803; J0330; J0696; J1170; J1650; J1815; J1885; J2270; J2370; J2405; J2704; J3010; J3475; J7040; J7121; Q9967; U0002